=== PATIENT | female | born 1980 | race Caucasian/White ===

== ENCOUNTER → 2016-10-29 | Outpatient (CLI) | payer OTHER ==
[2014-07-05 07:00] VITALS: BP 120/85
[~2016-10-29] MED LIST: LEVO500T38 PO
--- NOTE | 2016-10-29 16:07 | KCIC ---
PROCEDURE Bilateral breast sonogram. HISTORY 36-year-old female presents for six-month followup evaluation of suspected fibrocystic changes within both breasts demonstrated on a sonogram dated 02/27/2016. TECHNIQUE Sonographic imaging of both breasts including all 4 quadrants and the retroareolar regions was performed. COMPARISON 02/27/2016 FINDINGS Sonographic imaging of the right breast demonstrates decreased conspicuity of previously suspected fibrocystic changes at the 12 o'clock position. The previously demonstrated circumscribed lesion this location is no longer seen. There is no new suspicious finding within the right breast. There is no suspicious right axillary lymph node. Sonographic imaging of the left breast demonstrates stable suspected fibrocystic changes within the 3 o'clock position. There is stable ductal ectasia. There is no new suspicious sonographic finding within the left breast. There is no suspicious left axillary lymph node. IMPRESSION 1. Stable suspected fibrocystic changes and duct ectasia within the left breast and decreased conspicuity of suspected fibrocystic changes within the right breast. 2. No new suspicious sonographic finding. 3. BI-RADS Category 2: Benign findings. Bilateral mammography in 4 months is recommended to correspond with the previously established mammography interval. Electronically signed by: Bety Kendall (Oct 29, 2016 16:05:59)
== END | disposition home or self-care (01) ==
LOC: KCIC US 15:16
PROVIDERS: ATTEND Obstetrics & Gynecology Obstetrics
DX: R92.8 Other abnormal and inconclusive findings on diagnostic imaging of breast (principal); N60.11 Diffuse cystic mastopathy of right breast; N60.12 Diffuse cystic mastopathy of left breast
CPT/HCPCS: 76641

== ENCOUNTER → 2017-03-19 | Outpatient (CLI) | payer OTHER ==
[2014-07-05 07:00] VITALS: BP 120/85
[~2017-03-19] MED LIST changes: -LEVO500T38 PO; +LEVO500T59 PO
--- NOTE | 2017-03-19 17:51 | KCIC ---
Bilateral digital screening mammograms: Reason for examination: Routine screening. Comparison is made to previous study dated 02/11/2016. The skin and nipples show no abnormalities. No abnormal axillary lymph nodes are seen. Bilateral breast implants remain in place. The breast parenchyma is heterogeneously dense. (Breast density: Category C.) There are no dominant masses, suspicious calcifications or architectural distortion. Impression: No evidence of malignancy. Recommend routine screening. Your patient's mammogram demonstrates that she has dense breast tissue (breast density category C or D), which could hide abnormalities, and if she has other risk factors for breast cancer that have been identified, she might benefit from supplemental screening tests that may be suggested by you as her ordering physician. Dense breast tissue, in and of itself, is a relatively common condition. Therefore, this information is not provided to cause undue concern, but rather to raise your awareness and to promote discussion with your patient regarding the presence of other risk factors, in addition to dense breast tissue. Your patient's mammography results will be sent to her. BI-RAD Category 1: Negative. "Our facility is accredited by the [employer] Mammography [employer]." This patient's information has been entered into a reminder system for the patient to be notified with the results of her examination and a target date for the next mammogram. Electronically signed by: Corrina Ly MD (03/19/2017 5:47 PM)
== END | disposition home or self-care (01) ==
LOC: KCIC MAMMO 13:31
PROVIDERS: ATTEND Obstetrics & Gynecology Obstetrics
DX: Z12.31 Encounter for screening mammogram for malignant neoplasm of breast (principal)
CPT/HCPCS: G0202; 77067

== ENCOUNTER → 2019-08-22 | Outpatient (CLI) | payer OTHER ==
[2014-07-05 07:00] VITALS: BP 120/85
--- NOTE | 2019-08-22 19:31 | KCIC ---
Bilateral digital screening mammograms: Reason for examination: Routine screening. Comparison is made to previous studies dated 03/19/2017 and 02/11/2016. Interpretation was made with the benefit of CAD. The skin and nipples show no abnormalities. No abnormal axillary lymph nodes are seen. Bilateral breast implants remain present. The breast parenchyma is heterogeneously dense. (Breast density: Category C.) There are no dominant masses, suspicious calcifications or architectural distortion. Impression: No evidence of malignancy. Recommend routine screening. Your patient's mammogram demonstrates that she has dense breast tissue (breast density category C or D), which could hide abnormalities, and if she has other risk factors for breast cancer that have been identified, she might benefit from supplemental screening tests that may be suggested by you as her ordering physician. Dense breast tissue, in and of itself, is a relatively common condition. Therefore, this information is not provided to cause undue concern, but rather to raise your awareness and to promote discussion with your patient regarding the presence of other risk factors, in addition to dense breast tissue. Your patient's mammography results will be sent to her. BI-RAD Category 1: Negative. "Our facility is accredited by the [employer] Mammography [employer]." This patient's information has been entered into a reminder system for the patient to be notified with the results of her examination and a target date for the next mammogram. Electronically signed by: Corrina Ly MD (08/22/2019 7:28 PM) [id number]
== END | disposition home or self-care (01) ==
LOC: KCIC MAMMO 15:09
PROVIDERS: ATTEND Obstetrics & Gynecology Obstetrics
DX: Z12.31 Encounter for screening mammogram for malignant neoplasm of breast (principal); Z98.82 Breast implant status
CPT/HCPCS: 77067

== ENCOUNTER → 2020-10-09 | Outpatient (CLI) | payer OTHER ==
[2014-07-05 07:00] VITALS: BP 120/85
--- NOTE | 2020-10-09 17:56 | KCIC ---
Bilateral digital screening mammograms Reason for examination: Routine screening. Comparison is made to previous study dated August 22, 2019 and priors Standard and implant displaced CC and MLO digital views obtained. Interpretation was made with the be nefit of CAD. The skin and nipples show no abnormalities. No abnormal axillary lymph nodes are seen. The breast par enchyma is heterogeneously dense. (Breast density: Category C.) There are no suspicious masses, suspi cious calcifications or architectural distortion. Bilateral subpectoral silicone implants. Left axill hannah tail intramammary lymph node is stable, benign. At the right lower breast 6:00 position 5 cm from the nipple there is a partially obscured mass or cyst which is new. Impression: Right lower breast mass new from prior studies. Further evaluation with right breast ultr asound is advised. BI-RADS Category 0: Incomplete. Need additional imaging evaluation. ?Your patient's mammogram demonstrates that she has dense breast tissue (breast density category C or D), which could hide abnormalities, and if she has other risk factors for breast cancer that have be en identified, she might benefit from supplemental screening tests that may be suggested by you as he r ordering physician. Dense breast tissue, in and of itself, is a relatively common condition. Theref ore, this information is not provided to cause undue concern, but rather to raise your awareness and to promote discussion with your patient regarding the presence of other risk factors, in addition to dense breast tissue. Your patient's mammography results will be sent to her. "Our facility is accredited by the [employer] Mammography [employer]." Electronically signed by: Gareth Alexander MD (10/09/2020 5:54 PM) [facility]
== END ==
LOC: KCIC MAMMO 14:24
PROVIDERS: ATTEND Obstetrics & Gynecology Obstetrics
DX: Z12.31 Encounter for screening mammogram for malignant neoplasm of breast (principal)
CPT/HCPCS: 77067

== ENCOUNTER → 2020-10-14 | Outpatient (CLI) | payer OTHER ==
[2014-07-05 07:00] VITALS: BP 120/85
--- NOTE | 2020-10-14 11:05 | RAD ---
Examination: Limited right breast ultrasound. INDICATION: Screening recall for new right breast mass. COMPARISON: Bilateral mammograms of 10/09/2020 and 08/22/2019 TECHNIQUE: Grayscale and color Doppler imaging of the right breast focused in the inferior. Implant b reast tissue was performed along with sonographic survey of the right axilla. FINDINGS: Sonographic survey of the inferior right breast identifies a sonographically benign 4.5 mm oval circu mscribed anechoic cyst at the 6:30 o'clock position 4 cm from the nipple that correlates in size and shape and position with the mammographic finding recalled from screening. No suspicious sonographic f indings in the right axilla. Incidental right breast implant noted. IMPRESSION: Benign cyst in the inferior right breast on targeted ultrasound. No evidence of malignancy. BI-RADS Category 2 Benign findings Recommend return to routine screening next due in one year. Patient entered into a reminder system with targeted due date for next mammogram. Electronically signed by: Stanley Javed MD (10/14/2020 11:02 AM) [id number]
== END ==
LOC: US 10:33
PROVIDERS: ATTEND Obstetrics & Gynecology Obstetrics
DX: N60.01 Solitary cyst of right breast (principal); Z98.82 Breast implant status
CPT/HCPCS: 76641

== ENCOUNTER → 2021-12-17 | Outpatient (CLI) | payer OTHER ==
[2014-07-05 07:00] VITALS: BP 120/85
--- NOTE | 2021-12-17 16:02 | KCIC ---
Bilateral digital screening mammograms: Reason for examination: Routine screening. Comparison is made to previous studies dated back to 09/11/2013. Interpretation was made with the benefit of CAD. The skin and nipples show no abnormalities. No abnormal axillary lymph nodes are seen. The breast par enchyma is heterogeneously dense. (Breast density: Category C.) There is some focally increased nodul arity in the left breast on the implant displacement oblique view probably at the 9:00 position. Furt her evaluation with ultrasound is recommended. There are no other dominant masses, suspicious calcifi cations or architectural distortion. Impression: Focally increased nodularity in the left breast on implant displacement oblique view. Recommend furth er evaluation with ultrasound. Your patient's mammogram demonstrates that she has dense breast tissue (breast density category C or D), which could hide abnormalities, and if she has other risk factors for breast cancer that have bee n identified, she might benefit from supplemental screening tests that may be suggested by you as her ordering physician. Dense breast tissue, in and of itself, is a relatively common condition. Therefo re, this information is not provided to cause undue concern, but rather to raise your awareness and t o promote discussion with your patient regarding the presence of other risk factors, in addition to d ense breast tissue. Your patient's mammography results will be sent to her. BI-RAD Category 0: Incomplete. Needs additional imaging evaluation. "Our facility is accredited by the [employer] Mammography [employer]." This patient's information has been entered into a reminder system for the patient to be notified wit h the results of her examination and a target date for the next mammogram. Electronically signed by: Corrina Ly MD (12/17/2021 3:59 PM) [facility]
== END ==
LOC: KCIC MAMMO 14:12
PROVIDERS: ATTEND Obstetrics & Gynecology Obstetrics
DX: Z12.31 Encounter for screening mammogram for malignant neoplasm of breast (principal)
CPT/HCPCS: 77067

== ENCOUNTER → 2022-01-01 | Outpatient (CLI) | payer OTHER ==
[2014-07-05 07:00] VITALS: BP 120/85
--- NOTE | 2022-01-01 16:37 | KCIC ---
Left breast ultrasound: Reason for examination: Nodular density on screening mammogram. Comparison is made to mammographic exam dated 12/17/2021. Ultrasound examination of the left breast and axilla was performed. Breast implant is present and appears to be intact. At the 9:00 position 5 cm from the nipple, there appears to be a small 2 mm hypoechoic fibrocystic type nodule present with no abnormal vascularity se en. No other cystic or solid nodules are seen. No abnormal appearing lymph nodes are seen in the left axilla. IMPRESSION: Small 2 mm fibrocystic type nodule at the 9:00 position 5 cm from the nipple. Recommend 6 month follo w-up with ultrasound. BI-RADS Category 3: Probably Benign. "Our facility is accredited by the [employer] Mammography [employer]." This patient's information has been entered into a reminder system for the patient to be notified wit h the results of her examination and a target date for the next mammogram. Electronically signed by: Corrina Ly MD (01/01/2022 4:35 PM) [id number]
== END ==
LOC: KCIC US 14:22
PROVIDERS: ATTEND Obstetrics & Gynecology Obstetrics
DX: N63.22 Unspecified lump in the left breast, upper inner quadrant (principal)
CPT/HCPCS: 76641